=== PATIENT | female | born 1925 | race Caucasian/White ===

== ENCOUNTER 2016-06-23 08:46 | Outpatient (CLI) | payer MEDICARE ==
[2016-06-23 09:22] LABS: Hemoglobin A1c 9.2 % (4.0-6.0)
[2016-06-23 09:24] LABS: ALT (SGPT) 19 U/L (0-55); AST (SGOT) 23 U/L (5-34); Albumin 4.2 g/dL (3.4-4.8); Alkaline Phosphatase 60 U/L (40-150); Anion Gap 16 mmol/L (10-20); BUN (Urea Nitrogen) 20 mg/dL (9.8-20.1); Bilirubin, Total 0.6 mg/dL (0.2-1.2); Calc. Creatinine Clearance 0 mL/min (70-130); Calcium 9.8 mg/dL (7.8-10.44); Carbon Dioxide 22 mmol/L (23-31); Chloride 105 mmol/L (98-107); Estimated GFR-MDRD 53; Globulin 3.1 g/dL (2.4-3.5); Glucose 126 mg/dL (83-110); Potassium 4.1 mmol/L (3.5-5.1); Protein, Total 7.3 g/dL (5.8-8.1); Sodium 139 mmol/L (136-145)
== END 2016-06-23 08:47 ==
LOC: MADLABBHPM 08:46
PROVIDERS: ATTEND Family Medicine
DX: E11.65 Type 2 diabetes mellitus with hyperglycemia (principal)
CPT/HCPCS: 36415; 80053; 83036

== ENCOUNTER 2016-07-29 12:35 | Outpatient (CLI) | payer MEDICARE ==
[2016-07-29 14:40] LABS: Anion Gap 14 mmol/L (10-20); BUN (Urea Nitrogen) 18 mg/dL (9.8-20.1); Calc. Creatinine Clearance 0 mL/min (70-130); Calcium 10.6 mg/dL (7.8-10.44); Carbon Dioxide 27 mmol/L (23-31); Chloride 103 mmol/L (98-107); Estimated GFR-MDRD 53; Potassium 4.3 mmol/L (3.5-5.1); Sodium 140 mmol/L (136-145)
[2016-07-29 14:41] LABS: Glucose 181 mg/dL (83-110)
[2016-07-30 16:48] LABS: Creatinine, Urine 65.71 mg/dL (47-110); Microalbumin Urine 6.9 mg/dL (0.5-50.0)
== END 2016-07-29 12:36 | disposition home or self-care (01) ==
LOC: MADLAB 12:35
PROVIDERS: ATTEND Internal Medicine Nephrology
DX: N13.0 Hydronephrosis with ureteropelvic junction obstruction (principal); N18.3 Chronic kidney disease, stage 3 (moderate); Z87.440 Personal history of urinary (tract) infections
CPT/HCPCS: 80048; 82043; 84156

== ENCOUNTER 2016-09-14 08:17 | Outpatient (CLI) | payer MEDICARE ==
[2016-09-14 08:59] LABS: Hemoglobin A1c 10.1 % (4.0-6.0)
[2016-09-14 09:10] LABS: ALT (SGPT) 20 U/L (0-55); AST (SGOT) 22 U/L (5-34); Albumin 4.2 g/dL (3.4-4.8); Alkaline Phosphatase 82 U/L (40-150); Anion Gap 15 mmol/L (10-20); BUN (Urea Nitrogen) 18 mg/dL (9.8-20.1); Bilirubin, Total 0.6 mg/dL (0.2-1.2); Calc. Creatinine Clearance 0 mL/min (70-130); Calcium 9.9 mg/dL (7.8-10.44); Carbon Dioxide 23 mmol/L (23-31); Chloride 105 mmol/L (98-107); Cholesterol 170 mg/dL (< 200 Desired); Estimated GFR-MDRD 50; Globulin 3.2 g/dL (2.4-3.5); Glucose 270 mg/dL (83-110); HDL Cholesterol 42 mg/dL (>60 Neg Risk); LDL Cholesterol, Calculated 99 mg/dL; Potassium 4.2 mmol/L (3.5-5.1); Protein, Total 7.4 g/dL (5.8-8.1); Sodium 139 mmol/L (136-145); Triglycerides 147 mg/dL (Less than 150)
== END 2016-09-14 08:18 | disposition home or self-care (01) ==
LOC: MADLABBHPM 08:17
PROVIDERS: ATTEND Family Medicine
DX: E11.65 Type 2 diabetes mellitus with hyperglycemia (principal); E78.2 Mixed hyperlipidemia
CPT/HCPCS: 36415; 80053; 80061; 83036; 84443

== ENCOUNTER 2016-12-17 08:44 | Outpatient (CLI) | payer MEDICARE ==
[2016-12-17 09:07] LABS: Hemoglobin A1c 9.9 % (4.0-6.0)
[2016-12-17 10:23] LABS: ALT (SGPT) 20 U/L (8-55); AST (SGOT) 24 U/L (5-34); Albumin 4.2 g/dL (3.4-4.8); Alkaline Phosphatase 66 U/L (40-150); Anion Gap 16 mmol/L (10-20); BUN (Urea Nitrogen) 23 mg/dL (9.8-20.1); Bilirubin, Total 0.5 mg/dL (0.2-1.2); Calc. Creatinine Clearance 0 mL/min (70-130); Calcium 10.4 mg/dL (7.8-10.44); Carbon Dioxide 23 mmol/L (23-31); Chloride 105 mmol/L (98-107); Estimated GFR-MDRD 48; Globulin 3.3 g/dL (2.4-3.5); Glucose 112 mg/dL (83-110); Protein, Total 7.5 g/dL (6.0-8.3); Sodium 140 mmol/L (136-145)
== END 2016-12-17 08:45 | disposition home or self-care (01) ==
LOC: MADLABBHPM 08:44
PROVIDERS: ATTEND Family Medicine
DX: E11.65 Type 2 diabetes mellitus with hyperglycemia (principal)
CPT/HCPCS: 36415; 80053; 83036